=== PATIENT | female | born 1960 | race Caucasian/White ===

== ENCOUNTER 2018-11-23 23:37 | Emergency (ER) | payer OTHER ==
[2018-11-24] MEDS ORDERED: Bacitracin Oint 1 GM U/D Packet TOP ONE (00:27)
[2018-11-24] MEDS ORDERED: Diphtheria,Pertussis(Acell),Tetanus Vaccine 0.5 ML SDV IM ONE (00:37)
--- NOTE | 2018-11-24 01:14 | EDM.PDOC ---
ED HPI GENERAL MEDICAL PROBLEM - General Chief Complaint: Laceration Stated Complaint: LACERATION TO RIGHT ARM Time Seen by Provider: 11/24/18 00:15 Source of Information: Reports: Patient, Family History Limitations: Reports: No Limitations - History of Present Illness INITIAL COMMENTS - FREE TEXT/NARRATIVE: 58-year-old female stumbled and cut the back of her right arm on a metal clothes rack sustaining a laceration. This happened 2 hours ago. Bleeding is controlled. No other injury. Her tetanus is not current. Onset: Sudden Duration: Hour(s): (2 hours ago) Location: Reports: Upper Extremity, Right Associated Symptoms: Reports: No Other Symptoms denies pain Pain Score (Numeric/FACES): 0 - Related Data Allergies Allergy/AdvReac Type Severity Reaction Status Date / Time No Known Allergies Allergy Verified 11/24/18 00:10 Home Meds: Home Meds NK [No Known Home Meds] 11/24/18 [History] Past Medical History HEENT History: Reports: Cataract COLLET GLUER History: Reports: - Past Surgical History HEENT Surgical History: Reports: Cataract Surgery Musculoskeletal Surgical History: Reports: Other (See Below) Other Musculoskeletal Surgeries/Procedures:: osteotomy of left knee Social & Family History - Tobacco Use Smoking Status *Q: Current Every Day Smoker Years of Tobacco use: 30 Packs/Tins Daily: 0.5 - Caffeine Use Caffeine Use: Reports: Coffee - Recreational Drug Use Recreational Drug Use: No ED ROS GENERAL - Review of Systems Review Of Systems: See Below Constitutional: Denies: Fever, Chills Respiratory: Denies: Shortness of Breath GI/Abdominal: Denies: Abdominal Pain, Nausea, Vomiting Neurological: Denies: Paresthesia ED EXAM, SKIN/RASH Exam: See Below Exam Limited By: No Limitations General Appearance: Alert, No Apparent Distress Head: Atraumatic Respiratory/Chest: No Respiratory Distress Extremities: Other (Exam is otherwise limited to the right arm. She has a large , fairly deep irregular laceration on the dorsal aspect of the upper right arm that is a total of 13 cm. There is significant adipose tissue exposed.) Course - Vital Signs Last Recorded V/S: Last Vital Signs Temp 96.4 F 11/24/18 00:41 Pulse 57 L 11/24/18 00:41 Resp 17 11/24/18 00:41 BP 147/63 H 11/24/18 00:41 Pulse Ox 97 11/24/18 00:41 - Orders/Labs/Meds Orders: Active Orders 24 hr Category Date Time Status Vaccines to be Administered [RC] PER UNIT ROUTINE Care 11/24/18 01:09 Active Meds: Medications Discontinued Medications Generic Name Dose Route Start Last Admin Trade Name Joy PRN Reason Stop Dose Admin Bacitracin 1 dose 11/24/18 00:27 11/24/18 01:17 Bacitracin Oint 1 Gm TOP 11/24/18 00:28 1 dose ONETIME ONE Administration Diphtheria/Tetanus/Acell Pertussis 0.5 ml 11/24/18 00:37 11/24/18 01:16 Adacel IM 11/24/18 00:38 0.5 ml .ONCE ONE Administration - Re-Assessments/Exams Free Text/Narrative Re-Assessment/Exam: 11/24/18 01:16 The wound was infiltrated with 11 mL of 1% lidocaine with epinephrine. After anesthesia, it was irrigated aggressively with normal saline. Some debridement of adipose tissue was done, then 6 4-0 Vicryl sutures were used to close the subcutaneous tissue. 14 4-0 Ethilon sutures were used to close the laceration. Topical bacitracin and a dressing were applied. She'll be placed on cephalexin 500 3 times daily for the next 7 days, and sutures can be removed in . She can recheck sooner if concerns of infection or not healing satisfactorily. She was given a TDap Booster. Departure - Departure Time of Disposition: 01:30 Disposition: Home, Self-Care 01 Clinical Impression: Laceration of right upper arm Qualifiers: Encounter type: initial encounter Qualified Code(s): S41.111A - Laceration without foreign body of right upper arm, initial encounter - Discharge Information Instructions: Laceration Care, Adult Referrals: PCP,None [Primary Care Provider] - Forms: ED Department Discharge Care Plan Goals: Keep wound covered and clean while healing. Sutures can be removed on Sunday, 02 December. Activity as tolerated. Ibuprofen or naproxen will help with pain, add stronger pain medication as prescribed if needed. Recheck sooner if concerns of infection or not healing satisfactorily. - My Orders Last 24 Hours: My Active Orders 11/24/18 01:09 Vaccines to be Administered [RC] PER UNIT ROUTINE - Assessment/Plan Last 24 Hours: My Active Orders 11/24/18 01:09 Vaccines to be Administered [RC] PER UNIT ROUTINE
== END 2018-11-24 01:30 | disposition home or self-care (01) ==
LOC: JP.ED 23:37
DX: S41.111A Laceration without foreign body of right upper arm, initial encounter (principal); Z23 Encounter for immunization; F17.210 Nicotine dependence, cigarettes, uncomplicated; W26.8XXA Contact with other sharp object(s), not elsewhere classified, initial encounter
CPT/HCPCS: 12005; 90471; 90715; 99282

== ENCOUNTER 2023-11-09 07:56 | Day surgery (SDC) | payer OTHER ==
[2023-11-09] MEDS ORDERED: Propofol 200 MG/20 ML SDV ONE (08:16)
[2023-11-09] MEDS ORDERED: Midazolam 1 MG/ML 2 ML SDV ONE (08:16)
[2023-11-09] MEDS ORDERED: fentaNYL 50 MCG/ML SDV ONE (08:17)
[2023-11-09] MEDS: Sodium Chloride 0.9% 1,000 ML IV SCH (08:29)
[2023-11-09] MEDS ORDERED: Atropine 0.4 MG/ML SDV ONE (09:45)
== END 2023-11-09 11:10 | disposition home or self-care (01) ==
LOC: JP.SDS 07:56
PROVIDERS: ATTEND Surgery
DX: K63.5 Polyp of colon (principal); K64.9 Unspecified hemorrhoids; K92.2 Gastrointestinal hemorrhage, unspecified; E66.9 Obesity, unspecified; F17.210 Nicotine dependence, cigarettes, uncomplicated
CPT/HCPCS: 00811; 45380; 45398; J0461; J2250; J2704; J3010; J7030